=== PATIENT | female | born 1950 | race Caucasian/White ===

== ENCOUNTER 2018-07-09 03:12 | Observation (INO) | payer MEDICARE ==
[2018-07-09 03:50] LABS: #Basophils 0.1 thou/uL (0.0-0.2); #Eosinphils 0.1 thou/uL (0.0-0.7); #Lymphocytes 1.8 thou/uL (1.20-3.40); #Monocytes 0.7 thou/uL (0.11-0.59); #Neutrophils 6.9 thou/uL (1.40-6.50); %Basophils 0.8 % (0.0-1.0); %Eosinophils 1.2 % (0.0-10.0); %Lymphocytes 18.4 % (21.0-51.0); %Monocytes 7.8 % (0.0-10.0); %Neutrophils 71.8 % (42.0-75.0); Hemoglobin 13.7 g/dL (12.0-16.0); Mean Corpuscular HGB CONC 35.1 g/dL (32.0-36.0); Mean Corpuscular Hemoglobin 33.2 pg (27.0-31.0); Mean Corpuscular Volume 94.4 fL (78.0-98.0); Mean Platelet Volume 7.4 fL (7.4-10.4); Platelet Count 331 thou/uL (130-400); RBC Distribution Width 12.6 % (11.5-14.5); Red Blood Cell (RBC) Count 4.14 mill/uL (4.20-5.40); White Blood Cell (WBC) Count 9.6 thou/uL (4.8-10.8)
[2018-07-09 03:53] LABS: PTT 25.7 SEC (22.9-36.1); Prothrombin Time 13.7 SEC (12.0-14.7)
[2018-07-09 03:59] LABS: ALT (SGPT) 14 U/L (8-55); AST (SGOT) 14 U/L (5-34); Alkaline Phosphatase 105 U/L (40-150); Anion Gap 13 mmol/L (10-20); BUN (Urea Nitrogen) 23 mg/dL (9.8-20.1); Bilirubin, Total 0.3 mg/dL (0.2-1.2); Calc. Creatinine Clearance 0 mL/min (70-130); Calcium 9.7 mg/dL (7.8-10.44); Carbon Dioxide 23 mmol/L (23-31); Chloride 106 mmol/L (98-107); Estimated GFR-MDRD 79; Globulin 2.6 g/dL (2.4-3.5); Glucose 94 mg/dL (80-115); Potassium 3.8 mmol/L (3.5-5.1); Protein, Total 6.6 g/dL (6.0-8.3); Sodium 138 mmol/L (136-145)
[2018-07-09 04:03] LABS: CKMB 1.4 ng/mL (0-6.6); Troponin I Less than 0.010 ng/mL (< 0.028)
[2018-07-09] MEDS ORDERED: Lidocaine 1% w/Epinephrine 1:100K 20 ML VIAL ONE (04:35)
[2018-07-09] MEDS ORDERED: Adacel (T-DAP) 0.5 ML VIAL ONE (04:37)
[2018-07-09 05:37] LABS: Bilirubin Negative (Negative); Blood, Urine Negative (Negative); Clarity CLEAR (Clear); Glucose, Urine (Dipstick) Negative (Negative); Leukocyte Negative (Negative); Nitrite Negative (Negative); Protein, Urine (Dipstick) Negative (Neg-Trace); Urobilinogen 0.2 mg/dL (0.2-1.0)
[2018-07-09 05:40] LABS: Specific Gravity, Urine 1.048 (1.002-1.036)
[2018-07-09 07:08] LABS: Troponin I Less than 0.010 ng/mL (< 0.028)
--- NOTE | 2018-07-09 09:21 | RAD ---
PORTABLE CHEST: HISTORY: Altered mental status. FINDINGS: Lungs are clear. Heart and mediastinum unremarkable. Vascular markings are within normal range. IMPRESSION: No acute abnormality. POS: [facility]
--- NOTE | 2018-07-09 09:24 | CT ---
PRELIMINARY REPORT/[facility]/EMERGENTY AFTER-HOURS PROCEDURE Findings discussed with Soumya GARRIDO at time of interpretation. Initial Report created on 07/09/2018 4:18 AM Central Time ([place] & [place]) CT Angiography Head With Intravenous Contrast CLINICAL HISTORY: 68 years old, female; Signs and symptoms; Speech disturbance; Slurred speech; Patient HX: stroke ac tivation er 14; Pt found by bystander at apartment complex completely naked, altered, slurring spee ch, lac to back of head, unk loc. Bgl 107 for ems; Last seen normal 6 hrs ago TECHNIQUE: Axial computed tomographic angiography images of the head with intravenous contrast using CT angiogra phy protocol. MIP reconstructed images were created and reviewed. Coronal and sagittal reformatted images were created and reviewed. COMPARISON: No relevant prior studies available. FINDINGS: Right internal carotid artery: No acute findings. Intracranial segment is patent with no significant stenosis. No aneurysm. Right anterior cerebral artery: Unremarkable. No occlusion or significant stenosis. No aneurysm. Right middle cerebral artery: Unremarkable. No occlusion or significant stenosis. No aneurysm. Right posterior cerebral artery: Unremarkable. No occlusion or significant stenosis. No aneurysm. Right vertebral artery: Unremarkable as visualized. Left internal carotid artery: No acute findings. Intracranial segment is patent with no significant s tenosis. No aneurysm. Left anterior cerebral artery: Unremarkable. No occlusion or significant stenosis. No aneurysm. Left middle cerebral artery: Unremarkable. No occlusion or significant stenosis. No aneurysm. Left posterior cerebral artery: Unremarkable. No occlusion or significant stenosis. No aneurysm. Left vertebral artery: Unremarkable as visualized. Basilar artery: Unremarkable. No occlusion or significant stenosis. No aneurysm. IMPRESSION: Normal head CTA. CT Angiography Neck With Intravenous Contrast EXAM DATE/TIME: Exam ordered 07/09/2018 3:50 AM TECHNIQUE: Axial computed tomographic angiography images of the neck with intravenous contrast using CT angiogra phy protocol. MIP reconstructed images were created and reviewed. Coronal and sagittal reformatted images were created and reviewed. COMPARISON: CT Brain WO Con 07/09/2018 3:35 AM FINDINGS: VASCULATURE: Right common carotid artery: Unremarkable. No significant stenosis. No dissection or occlusion. Right internal carotid artery: Unremarkable. Extracranial segment is patent with no significant steno sis. No dissection or occlusion. Right external carotid artery: Unremarkable. No occlusion. Right vertebral artery: Unremarkable. No significant stenosis. No dissection or occlusion. Left common carotid artery: Unremarkable. No significant stenosis. No dissection or occlusion. Left internal carotid artery: Unremarkable. Extracranial segment is patent with no significant stenos is. No dissection or occlusion. Left external carotid artery: Unremarkable. No occlusion. Left vertebral artery: Unremarkable. No significant stenosis. No dissection or occlusion. NECK: Bones/joints: No acute fracture. No dislocation. Soft tissues: Unremarkable as visualized. No mass. CAROTID STENOSIS REFERENCE USING NASCET CRITERIA: % ICA stenosis = (1 - narrowest ICA diameter/diameter of distal cervical ICA) x 100. Mild - <50% stenosis. Moderate - 50-69% stenosis. Severe - 70-94% stenosis. Near occlusion - 95-99% stenosis. Occluded - 100% stenosis. IMPRESSION: Normal neck CTA. Thank you for allowing us to participate in the care of your patient. Dictated and Authenticated by: Vikram Bolanos MD 07/09/2018 4:18 AM Central Time ([place]) FINAL REPORT CTA HEAD AND CTA NECK: Multiple axial tomograms were obtained through the head and neck with IV enhancement, multiplanar rec onstruction, and 3D post processing. CTA head shows no abnormality in the cerebral circulation. I am in agreement with the preliminary re port. CTA neck shows no abnormality in the extracranial carotid system. Bilateral common carotid and inter nal carotid arteries are unremarkable. Vertebral arteries unremarkable. I am in agreement with the preliminary report. POS: [facility]
--- NOTE | 2018-07-09 09:26 | CT ---
PRELIMINARY REPORT/[facility]/EMERGENTY AFTER-HOURS PROCEDURE Addendum created by Vikram Bolanos MD on 07/09/2018 3:50 AM Central Time ([place]) Findings discu ssed with JACKY GARRIDO at time of interpretation. Initial Report created on 07/09/2018 3:45 AM Central Time ([place] & [place]) CT Head Without Intravenous Contrast EXAM DATE/TIME: 07/09/2018 3:35 AM CLINICAL HISTORY: 68 years old, female; Signs and symptoms; Altered mental status/memory loss and speech disturbance; S lurred speech; Patient HX: PT found by bystander at apartment complex completely naked, altered, slur ring speech, lac to back of head, unk loc. Bgl 107 for ems TECHNIQUE: Axial computed tomography images of the head/brain without intravenous contrast. COMPARISON: No relevant prior studies available. FINDINGS: Brain: Mild generalized volume loss of the brain. No brain edema. No intracranial hemorrhage. Ventricles: Normal. No ventriculomegaly. Bones/joints: Normal. No acute fracture. Sinuses: Normal as visualized. No acute sinusitis. Mastoid air cells: Normal as visualized. No mastoid effusion. Soft tissues: Normal. IMPRESSION: No acute brain findings. Thank you for allowing us to participate in the care of your patient. Dictated and Authenticated by: Vikram Bolanos. FINAL REPORT CT HEAD: Multiple axial tomograms were obtained through the head without IV enhancement. No evidence of acute hemorrhage, mass, or infarct. I am in agreement with the preliminary report. POS: [facility]
--- NOTE | 2018-07-09 09:28 | CT ---
PRELIMINARY REPORT/[facility]/EMERGENTY AFTER-HOURS PROCEDURE CT Cervical Spine Without Intravenous Contrast EXAM DATE/TIME: 07/09/2018 3:39 AM CLINICAL HISTORY: 68 years old, female; Injury or trauma; Fall; Initial encounter; Abrasion; Patient HX: Er 14; PT foun d by bystander at apartment complex completely naked, altered, slurring speech, lac to back of head, unk loc. Bgl 107 for ems; TECHNIQUE: Axial computed tomography images of the cervical spine without intravenous contrast. Coronal and sagittal reformatted images were created and reviewed. COMPARISON: No relevant prior studies available. FINDINGS: Vertebrae: No acute fracture. Normal alignment. Discs/Spinal canal/Neural foramina: No spinal stenosis. No neural foraminal narrowing. Soft tissues: Unremarkable. Lung apices: Normal. IMPRESSION: No acute findings. Thank you for allowing us to participate in the care of your patient. Dictated and Authenticated by: Vikram Bolanos MD 07/09/2018 3:56 AM Central Time ([place] & [place]) FINAL REPORT CT CERVICAL SPINE: No evidence of cervical spine fracture. I am in agreement with the preliminary report. POS: [facility]
[2018-07-09] MEDS ORDERED: Mag-Al 1200 mg/1200 mg/30 ML UDCUP PO PRN (09:45)
[2018-07-09] MEDS ORDERED: Acetaminophen 325 MG TAB PO PRN (09:45)
[2018-07-09] MEDS ORDERED: diphenhydrAMINE 25 MG CAP PO PRN (09:45)
[2018-07-09] MEDS ORDERED: Lorazepam 0.5 MG TAB PO PRN (09:45)
[2018-07-09 09:52] LABS: Troponin I Less than 0.010 ng/mL (< 0.028)
[2018-07-09] MEDS ORDERED: Nicotine 7 MG PATCH TOP ONE (11:15)
--- NOTE | 2018-07-09 12:44 | HP ---
PRIMARY CARE PHYSICIAN: Dr. Jose Alcantara. CHIEF COMPLAINT: Fall and altered mental status. HISTORY OF PRESENT ILLNESS: The history of present illness is taken primarily from the patient's son who is at the bedside as the patient does not have much memory of what happened earlier today. The patient's son states that his mom, Ms. Gannon has a history of insomnia for at least 30 years now. Th ey were really not sure what is the reason for the insomnia, but she has had a difficult time control ling it and over the years, she has seen a psychiatrist. She was put on several different medication s including trazodone, Restoril, Valium and other medications. Recently, they had settled on her vivian ng lorazepam 1.5 mg as well as 75 mg of Benadryl at night. Today or last night, he got a call from [facility], because they found her in the elevator room, she was bleeding from the back of the head and it looks like she may have fallen in the bathroom. They noted that there was blood in the bathro om and there was blood on her bed. She was brought via EMS to the hospital here. There was some con cern for stroke in that it appeared as if she had a facial droop due to the confusion and fall. A [facility] alert was called. She had a CT scan of the brain, which was negative. He says by this time, he had arrived to the hospital and explained to them that this has happened to her before, he believes she accidentally overdosed on the sleep medications. 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 He went to her room in [facility] apartment and noticed that all of the medications including the lorazepam and Benadryl were gone. He says that he had refilled just 2 days ago, so he believes that she overdosed on the medications. By the time I see her, she is awake and alert. She still is a bit confused as to the year that is, s he did know it was June, but she does not know the details of what has happened. Currently, she de nies any headache, no chest pain, shortness of breath, no PND, no orthopnea, no palpitations. She do es not have any weakness in any of her extremities. REVIEW OF SYSTEMS: All systems were reviewed and are negative except for that mentioned in the histo ry of present illness. PAST MEDICAL HISTORY: Include insomnia and depression. PAST SURGICAL HISTORY: She has had a cholecystectomy, hysterectomy, tonsillectomy, hip fracture. ALLERGIES: No known drug allergies. SOCIAL HISTORY: She is , has 1 child. She denies any alcohol use. She does smoke about one and a half pack of cigarettes a day. CODE STATUS: FULL CODE. FAMILY HISTORY: Significant for cancer. MEDICATIONS: Include 1.5 mg of lorazepam and 75 mg of Benadryl at bedtime. PHYSICAL EXAMINATION: GENERAL: She is alert, but disoriented by the year. She thinks it is 1917. She did not it was . She knows she is in the hospital. She is a bit disheveled in appearance, but well-developed and well-nourished. VITAL SIGNS: Her blood pressure was 119/76, heart rate 86, respiratory rate of 20, temperature is 97 .3. HEENT: Pupils are equal, round, and reactive. Extraocular muscles are intact. Her sclerae are anic teric. Throat: There is no erythema, no exudates. NECK: No adenopathy, no appreciable bruits. LUNGS: Clear to auscultation. There is no wheezing, no rales. CARDIOVASCULAR: She had a normal S1, S2. I do not appreciate an S3 or S4. No murmurs, clicks, no r ubs. ABDOMEN: Soft, it is nontender, nondistended. Positive for bowel sounds. There is no rebound, no g uarding, no appreciable organomegaly. EXTREMITIES: She has got multiple excoriations on her lower extremities. Her son says these were sc ratches from her cat. She has got a long mycotic nails on her toes. Otherwise, no other significant skin lesions. NEUROLOGIC: She does have somewhat of a left facial droop. Her muscle strength in her upper and low er extremities is 5/5 in both the right and left and reflexes are symmetric. LABORATORY DATA AND IMAGING: She had a CT scan of the brain, which was negative. A CT angiogram per fusion was canceled. She has had a CT of the cervical spine, which is pending. On her laboratory wo rk, the white blood cell count is 9.6, hemoglobin 13.7, hematocrit is 39.1, platelet count is 331. I NR is 1.0. Sodium 138, potassium 3.8, chloride is 106, CO2 is 23, BUN of 23, creatinine 0.73, glucos e is 94. Her liver function tests were normal. Troponin, she has had 2 which were both less than 0. 010. EKG is ordered, but not done yet. ASSESSMENT AND PLAN: This is a 68-year-old female that suffered a fall at home with some loss of con sciousness. I suspect this was as a result of an accidental overdose on her sleeping medications. H er son tells me that she has had four other episodes like this before in the past. The findings on h er exam with regards to the facial droop are likely the result of the late effects of polio as per dilcia r son's description and the patient endorses this as well. Therefore, a stroke workup has been abort ed. We will however, monitor her overnight, given that she had fairly severe head injury with a lace ration to the back of her head, we will do neuro checks periodically and reevaluate her in the [facility] For the insomnia, unfortunately, this has been a chronic ongoing problem. Actually as I walked i n the room and finish the encounter, the patient was very concerned as to what medication she will ge t for sleep tonight. We will likely have to continue her on her usual regimen and this will have to be addressed in the outpatient setting with her primary care physician. I explained to her that this will be a long difficult process to get her on a safe regimen as she is likely become dependent on t he medications. We will hold off on a deep venous thrombosis prophylaxis other than sequential compr ession devices given the recent fall.
[2018-07-09] MEDS ORDERED: ISOVUE-370 76%-LOCM 1 ML ONE (14:01)
[2018-07-09 15:07] VITALS: BMI 24.1
[2018-07-09] MEDS: Sodium Chloride 0.9% 1,000 ML IV SCH (17:29)
[2018-07-10 05:43] LABS: #Eosinphils 0.1 thou/uL (0.0-0.7); #Lymphocytes 1.3 thou/uL (1.20-3.40); #Monocytes 0.4 thou/uL (0.11-0.59); #Neutrophils 3.4 thou/uL (1.40-6.50); %Basophils 0.9 % (0.0-1.0); %Eosinophils 2.2 % (0.0-10.0); %Lymphocytes 24.3 % (21.0-51.0); %Monocytes 8.2 % (0.0-10.0); %Neutrophils 64.4 % (42.0-75.0); Hemoglobin 12.5 g/dL (12.0-16.0); Mean Corpuscular HGB CONC 34.7 g/dL (32.0-36.0); Mean Corpuscular Hemoglobin 32.5 pg (27.0-31.0); Mean Corpuscular Volume 93.9 fL (78.0-98.0); Mean Platelet Volume 6.7 fL (7.4-10.4); Platelet Count 283 thou/uL (130-400); RBC Distribution Width 12.5 % (11.5-14.5); Red Blood Cell (RBC) Count 3.83 mill/uL (4.20-5.40); White Blood Cell (WBC) Count 5.2 thou/uL (4.8-10.8)
[2018-07-10 05:49] LABS: Anion Gap 11 mmol/L (10-20); BUN (Urea Nitrogen) 11 mg/dL (9.8-20.1); Calc. Creatinine Clearance 84 mL/min (70-130); Calcium 8.3 mg/dL (7.8-10.44); Carbon Dioxide 22 mmol/L (23-31); Chloride 110 mmol/L (98-107); Estimated GFR-MDRD Greater than 90; Glucose 90 mg/dL (80-115); Potassium 3.5 mmol/L (3.5-5.1); Sodium 139 mmol/L (136-145)
[2018-07-10] MEDS: Sodium Chloride 0.9% 1,000 ML IV SCH ×2 (05:53→06:37)
[2018-07-10 07:53] VITALS: BP 151/89; TEMP 98.5
--- NOTE | 2018-07-10 09:44 | PDOC.PN ---
- Subjective Encounter Start Date: 07/10/18 Encounter Start Time: 09:42 Ms. Gannon was seen today in follow-up. She does not have any complaints. She denies having a headache, nausea, vomiting. She ate breakfast and has walked around the room without difficulty. - Objective Resuscitation Status: Resuscitation Status FULL:Full Resuscitation MAR Reviewed: Yes Vital Signs & Weight: Vital Signs (12 hours) Temp Pulse Resp BP Pulse Ox 07/10/18 07:53 98.5 F 95 20 151/89 H 99 07/10/18 04:00 98.3 F 83 18 119/69 95 07/10/18 00:00 98.2 F 92 18 112/70 95 Weight Weight 131 lb 14.4 oz I&O: 07/09/18 07/10/18 07/11/18 06:59 06:59 06:59 Intake Total 1000 Balance 1000 Result Diagrams: 07/10/18 05:11 07/10/18 05:11 Phys Exam - Physical Examination HEENT: PERRLA Respiratory: no wheezing, no rales, no rhonchi, clear to auscultation bilateral Cardiovascular: RRR, no significant murmur, no rub Gastrointestinal: soft, non-tender, positive bowel sounds Musculoskeletal: no edema Neurological: non-focal, moves all 4 limbs Psychiatric: normal affect, A&O x 3 Dx/Plan (1) Adverse effects of medication Code(s): T50.905A - ADVERSE EFFECT OF UNSP DRUG/MEDS/BIOL SUBST, INIT Status: Acute (2) Fall Code(s): W19.XXXA - UNSPECIFIED FALL, INITIAL ENCOUNTER Status: Acute (3) Insomnia Code(s): G47.00 - INSOMNIA, UNSPECIFIED Status: Acute - Plan * Fall related to sedating medications- she has been monitored overnight with no adverse affects related to the head injury * Stable for discharge home..
--- NOTE | 2018-07-10 10:06 | DIS ---
DATE OF ADMISSION: 07/09/2018 DATE OF DISCHARGE: 07/10/2018 PRIMARY CARE PHYSICIAN: Dr. Jose Alcantara. DISCHARGE DISPOSITION: Home. PRIMARY DISCHARGE DIAGNOSES: 1. Altered mental status secondary to sedating medication. 2. Fall secondary to sedating medication versus accidental overdose. 3. Chronic insomnia. 4. Depression. DISCHARGE MEDICATIONS: The patient is to continue lorazepam 1.5 mg at bedtime, and Benadryl 75 mg at bedtime. PROCEDURES DONE DURING ADMISSION: The patient had a CT scan of the brain, which was negative for any acute intracranial abnormalities. A CT scan of the cervical spine, which did not reveal any C-spine fracture injury. A CT scan of the [place], which was negative for any flow limiting diseas e. CODE STATUS: FULL CODE. ALLERGIES: No known drug allergies. HOSPITAL COURSE: Ms. Gannon is a pleasant 68-year-old female who presented to the emergency room afte r suffering a fall. She was found down at [facility] and it was noted that she had hit the back of her head. She was brought to the emergency room where a CT scan was done, which was negative for an y subdural hematoma or intracranial hemorrhage or stroke. There was initial concern for a cerebrovas cular accident as the patient had a facial droop, but after her son arrived, he explained that she lundy s had the facial droop for years after being diagnosed with polio. Therefore, this was not a new fin ding. It is suspected that the patient possibly inadvertently took additional medications as the son says that when he came to look at the patient's pill bottles, they were completely empty, only 1-2 d ays after he had refilled them. The patient says that with her current regimen, she was still having difficulty sleeping with the Benadryl 75 mg as well as Xanax 1.5 mg; therefore, it is highly probabl e that she may have tried to take some extra tablets in order to get to sleep. The patient's son say s that she has an appointment with Dr. Alcantara later this week and therefore they can discuss the medi cations with him and determine if any changes need to be made. Otherwise, the patient is being disch arged home in stable condition.
--- NOTE | 2018-07-13 13:37 | EKG ---
Test Reason : Blood Pressure : / mmHG Vent. Rate : 097 BPM Atrial Rate : 097 BPM P-R Int : 134 ms QRS Dur : 120 ms QT Int : 388 ms P-R-T Axes : 029 -02 040 degrees QTc Int : 492 ms Normal sinus rhythm Right bundle branch block No STEMI Abnormal ECG Confirmed by DANNIE DWYER M.D. ([id number]), assistant editor NIKOLE LEE ([id number]) on 07/13/2018 1:36:55 PM Referred By: Confirmed By:DANNIE DWYER M.D.
== END 2018-07-10 10:52 | disposition home or self-care (01) ==
LOC: ERS 03:12 → ERHOLD 06:01 → 2SE 14:36
PROVIDERS: ADMIT Internal Medicine Infectious Disease; ATTEND Internal Medicine Infectious Disease
DX: R41.82 Altered mental status, unspecified (principal); T42.75XA Adverse effect of unspecified antiepileptic and sedative-hypnotic drugs, initial encounter; S01.81XA Laceration without foreign body of other part of head, initial encounter; S09.90XA Unspecified injury of head, initial encounter; F32.9 Major depressive disorder, single episode, unspecified; F17.210 Nicotine dependence, cigarettes, uncomplicated; F51.04 Psychophysiologic insomnia; Z86.12 Personal history of poliomyelitis; Z79.899 Other long term (current) drug therapy; W19.XXXA Unspecified fall, initial encounter
CPT/HCPCS: 12002; 51701; 70450; 70496; 70498; 71045; 72125; 80048; 80053; 81003; 82553; 84484 ×2; 85025 ×2; 85610; 85730; 90471; 90715; 93005; 96360; 96361 ×3; 99285; G0378 ×2; 36415; A4353; J2001

== ENCOUNTER 2019-10-16 13:47 | Outpatient (CLI) | payer MEDICARE ==
--- NOTE | 2019-10-16 14:30 | RAD ---
XR Hip Lt 2-3 View HISTORY: Left hip pain FINDINGS: No fracture or dislocation is identified. There are postop changes with screws in the left proximal f emur. There are degenerative changes in the left hip joint.
== END 2019-10-16 13:48 | disposition home or self-care (01) ==
LOC: BICRAD 13:47
PROVIDERS: ATTEND Family Medicine
DX: M25.552 Pain in left hip (principal)